=== PATIENT | female | born 1940 | race Caucasian/White ===

== ENCOUNTER → 2023-07-31 11:14 | Outpatient (REF) | payer MEDICARE, SELFPAY | LOC: RAD 11:14 | PROVIDERS: ATTENDING PHYSICIAN Family Medicine | DX: R06.2 Wheezing (principal) | CPT/HCPCS: 71046 ==

== ENCOUNTER → 2023-11-20 10:20 | Outpatient (REF) | payer MEDICARE, SELFPAY | LOC: RAD 10:20 | PROVIDERS: ATTENDING PHYSICIAN Family Medicine | DX: R26.0 Ataxic gait (principal) | CPT/HCPCS: 72110; 73502 ==